=== PATIENT | male | born 1965 | race Caucasian/White ===

== ENCOUNTER → 2020-10-09 | Outpatient (CLI) | payer OTHER | LOC: SJCVCIMAG 07:06 | PROVIDERS: ATTEND Internal Medicine Cardiovascular Disease | DX: R93.1 Abnormal findings on diagnostic imaging of heart and coronary circulation (principal); I49.3 Ventricular premature depolarization; R07.89 Other chest pain; I10 Essential (primary) hypertension; R00.0 Tachycardia, unspecified; F17.290 Nicotine dependence, other tobacco product, uncomplicated; Z79.899 Other long term (current) drug therapy; R06.00 Dyspnea, unspecified; R53.83 Other fatigue ==

== ENCOUNTER → 2020-10-09 | Outpatient (CLI) | payer OTHER | LOC: CAT 13:20 | PROVIDERS: ATTEND Internal Medicine Cardiovascular Disease | DX: Z13.6 Encounter for screening for cardiovascular disorders (principal) ==